=== PATIENT | male | born 1980 | race Hispanic/Latino ===

== ENCOUNTER 2023-10-27 19:33 | Emergency (ER) | payer SELFPAY ==
[2023-10-27] VITALS (8 sets, daily range): BP systolic 97–116; BP diastolic 54–75
[~2023-10-27] VITALS: Ht 170.2 cm; Wt 72.6 kg
[2023-10-27] MEDS ORDERED: METHOCARBAMOL 500 MG/TAB PO ONE (19:55)
[2023-10-27] MEDS ORDERED: KETOROLAC TROMETHAMINE 30 MG/ML SDV IM ONE (19:55)
[2023-10-27 20:12] LABS: BASO% 0.8 % (0-3); EOS% 1.1 % (0-8); HEMATOCRIT 40.2 % (39.0-50.0); HEMOGLOBIN 13.6 g/dl (14.0-18.0); IMMATURE GRANULOCYTES 0.2 % (0.0-5.0); LYMPH% 33.8 % (15-41); MEAN CORPUSCULAR HGB 30.8 pG CALC (26.0-32.0); MEAN CORPUSCULAR HGB CONC 33.8 g/dL CAL (32.0-36.0); MONO% 9.1 % (2-13); NEUT# 3.52 thou/uL (1.82-7.42); RED BLOOD COUNT 4.42 mill/uL (4.70-6.10); RED CELL DISTRI WIDTH 12.3 % (11.5-15.5)
[2023-10-28] VITALS: BP 99/65
[2023-10-28 00:15] VITALS: BP 111/79
[2023-10-28 00:30] VITALS: BP 117/78
[2023-10-28 00:45] VITALS: BP 99/63
== END 2023-10-28 01:05 | disposition home or self-care (01) | DRG 914 ==
LOC: ED 19:33
PROVIDERS: Family Medicine
DX: T14.8XXA Other injury of unspecified body region, initial encounter (principal); M25.512 Pain in left shoulder; M25.561 Pain in right knee; V13.4XXA Pedal cycle driver injured in collision with car, pick-up truck or van in traffic accident, initial encounter